=== PATIENT | female | born 1945 | race Caucasian/White ===

== ENCOUNTER 2024-12-01 14:35 | Outpatient (CLI) | payer MEDICARE | END 2024-12-01 14:36 | disposition home or self-care (01) | LOC: CSHMAMMO 14:35 | PROVIDERS: ATTEND Internal Medicine | DX: Z78.0 Asymptomatic menopausal state (principal); M85.851 Other specified disorders of bone density and structure, right thigh; M85.852 Other specified disorders of bone density and structure, left thigh | CPT/HCPCS: 77080 ==